=== PATIENT | male | born 1945 | race Caucasian/White ===

== ENCOUNTER 2016-07-13 05:21 | Day surgery (SDC) | payer MEDICARE, OTHER ==
[2016-07-13] MEDS ORDERED: fentaNYL 100 MCG/2 ML SDV ONE (06:13)
[2016-07-13] MEDS ORDERED: Midazolam 1 MG/ML 2 ML SDV ONE (06:13)
[2016-07-13] MEDS ORDERED: fentaNYL 100 MCG/2 ML SDV IV ONE ×3 (06:29→14:39)
[2016-07-13] MEDS ORDERED: Midazolam 1 MG/ML 2 ML SDV IV ONE ×6 (06:30→14:39)
[2016-07-13] MEDS ORDERED: Sodium Chloride 0.9% 10 ML Syringe FLUSH PRN (06:34)
[2016-07-13] MEDS ORDERED: Dextrose 5%-0.45% NaCl 1,000 ML IV SCH (06:45)
--- NOTE | 2016-07-13 07:19 | OR ---
DATE: 07/13/2016 PROCEDURES: Total colonoscopy, NBI, and cold snare polypectomy. INSTRUMENT USED: CF-H180AL Olympus video colonoscope. PREMEDICATIONS: Fentanyl 100 mcg intravenous, Versed 3.5 mg intravenous, nasal 2 L O2 cannula. The procedure was done under pulse oximetry, BP recording, and ekg monitor tech. INDICATION: The patient with progressive constipation, unexplained and not responsive to medical measures. Colonoscopic examination is done for detection of any polypoid lesions and removal, endoscopic hemostasis therapy if needed. DESCRIPTION OF PROCEDURE: Initial rectal exam was unremarkable. Rigid anoscopy showed small internal hemorrhoids without bleeding from them. The colonoscope was passed with ease. Scattered diverticula were noted in the distal left colon along with deformity. The scope was passed with ease up to the ileocecal area, photographs were taken of the normal-appearing cecum, identified by landmarks of appendiceal orifice and double-bulged ileocecal folds. No bleeding was noted from any of the visualized areas at the commencement of the examination. In the proximal ascending colon, 5 mm sized benign-appearing polyp was noted, NBI views were obtained, photographs were obtained, cold snare polypectomy was done, and the tissues were retrieved and sent for histopathology. No stricture. No vascular ectasia. No large isolated ulcerations seen. No evidence of diffuse inflammatory bowel disease in the form of friability, contact bleeding, or ulcerations. Probing the proximal sides of folds and flexures, using adequate distention and clearing of the stool material, withdrawal of the scope was made, cecum to rectum time over 6 minutes. No bleeding was noted from any of the visualized areas at the completion of examination. IMPRESSION: 1. Internal hemorrhoids. 2. Diverticulosis. 3. Ascending colon polyp. The patient tolerated the procedure well. [facility] /[id number]
[2016-07-13 09:10] VITALS: BP 110/64
== END 2016-07-13 08:57 | disposition home or self-care (01) ==
LOC: DL.ENDO 05:21
PROVIDERS: ATTEND Internal Medicine Gastroenterology
DX: D12.2 Benign neoplasm of ascending colon (principal); K57.30 Diverticulosis of large intestine without perforation or abscess without bleeding; K59.00 Constipation, unspecified; K64.8 Other hemorrhoids; K58.9 Irritable bowel syndrome, unspecified; K21.9 Gastro-esophageal reflux disease without esophagitis; F41.1 Generalized anxiety disorder
CPT/HCPCS: 45385; 88305; J2250; J3010; J7042

== ENCOUNTER → 2021-12-20 | Day surgery (SDC) | payer MEDICARE, OTHER ==
[~2021-12-20] MED LIST: Dextrose 5%-0.45% NaCl 1,000 ML IV SCH; Midazolam 1 MG/ML 2 ML SDV ONE; Sodium Chloride 0.9% 10 ML Syringe FLUSH PRN; Sodium Chloride 0.9% 10 ML Syringe FLUSH SCH; fentaNYL 100 MCG/2 ML SDV ONE
== END ==
LOC: DL.ENDO 06:00
PROVIDERS: ATTEND Internal Medicine Gastroenterology
DX: K29.50 Unspecified chronic gastritis without bleeding (principal); F41.1 Generalized anxiety disorder; K21.9 Gastro-esophageal reflux disease without esophagitis; E03.9 Hypothyroidism, unspecified; K58.9 Irritable bowel syndrome, unspecified; D64.9 Anemia, unspecified; Z79.899 Other long term (current) drug therapy

== ENCOUNTER → 2023-04-24 | Day surgery (SDC) | payer MEDICARE, OTHER ==
[~2023-04-24] MED LIST changes: -Midazolam 1 MG/ML 2 ML SDV ONE; -Sodium Chloride 0.9% 10 ML Syringe FLUSH PRN; -Sodium Chloride 0.9% 10 ML Syringe FLUSH SCH; -fentaNYL 100 MCG/2 ML SDV ONE
[2023-04-24] MEDS: fentaNYL 100 MCG/2 ML SDV IV ONE ×2 (06:50→06:51)
[2023-04-24] MEDS: Midazolam 1 MG/ML 2 ML SDV IV ONE ×2 (06:51→06:53)
[2023-04-24 11:30] VITALS: BP 98/65; PULSE 66
== END ==
LOC: DL.ENDO 06:00
PROVIDERS: ATTEND Internal Medicine Gastroenterology
DX: Z12.11 Encounter for screening for malignant neoplasm of colon (principal); K57.30 Diverticulosis of large intestine without perforation or abscess without bleeding; K21.9 Gastro-esophageal reflux disease without esophagitis; E78.2 Mixed hyperlipidemia; E03.9 Hypothyroidism, unspecified; F41.1 Generalized anxiety disorder; D64.9 Anemia, unspecified; N40.0 Benign prostatic hyperplasia without lower urinary tract symptoms; F32.A Depression, unspecified; Z85.038 Personal history of other malignant neoplasm of large intestine; Z79.890 Hormone replacement therapy; Z79.899 Other long term (current) drug therapy
CPT/HCPCS: J2250; J3010

== ENCOUNTER 2024-01-24 05:52 | Day surgery (SDC) | payer MEDICARE, OTHER ==
[2024-01-24] MEDS ORDERED: Midazolam 1 MG/ML 2 ML SDV IV ONE (05:53)
[2024-01-24] MEDS ORDERED: fentaNYL 100 MCG/2 ML SDV IV ONE (05:53)
[2024-01-24] MEDS ORDERED: Dextrose 5%-0.45% NaCl 1,000 ML IV SCH (06:00)
[2024-01-24] MEDS ORDERED: Midazolam 1 MG/ML 2 ML SDV ONE (06:10)
[2024-01-24] MEDS ORDERED: fentaNYL 100 MCG/2 ML SDV ONE (06:11)
[2024-01-24] MEDS: Dextrose 5%-0.45% NaCl 1,000 ML IV SCH (06:21)
[2024-01-24] MEDS: fentaNYL 100 MCG/2 ML SDV IV ONE ×2 (07:18→07:19)
[2024-01-24] MEDS: Midazolam 1 MG/ML 2 ML SDV IV ONE ×2 (07:19→07:20)
[2024-01-24 09:04] VITALS: BP 111/64; PULSE 76
== END 2024-01-24 09:05 | disposition home or self-care (01) ==
LOC: DL.ENDO 05:52
PROVIDERS: ATTEND Internal Medicine Gastroenterology
DX: K31.819 Angiodysplasia of stomach and duodenum without bleeding (principal); K21.9 Gastro-esophageal reflux disease without esophagitis; E78.2 Mixed hyperlipidemia; E03.9 Hypothyroidism, unspecified
CPT/HCPCS: 43239; J2250; J3010; J7799